=== PATIENT | male | born 1980 | race Caucasian/White ===

== ENCOUNTER 2018-10-12 04:32 | Observation (INO) | payer SELFPAY ==
[2018-10-12] MEDS ORDERED: LORazepam 2 MG/ML VIAL ONE (05:05)
[2018-10-12 05:07] LABS: Absolute Lymphocytes (CBC) 2.6 K/uL (0.7-4.9); Absolute Monocytes 2.1 K/uL (0.1-1.3); Absolute Neutrophil 12.4 K/uL (1.8-8.0); Basophils % 0.5 % (0-1.3); Eosinophils % 0.4 % (0-4.4); Hematocrit 47.1 % (39.6-49.0); Lymphocytes % 15.3 % (15.3-44.8); MPV 8.3 fL (7.6-11.3); Monocytes % 12.2 % (3.3-12.3); RBC Red Blood Cell Count 5.06 M/uL (4.33-5.43)
[2018-10-12 05:08] LABS: Protime INR 0.98
[2018-10-12] MEDS ORDERED: RSI MEDICATION KIT IV ONE (05:12)
[2018-10-12] MEDS ORDERED: NA CHLORIDE 0.9% 1,000 ML ONE ×2 (05:13→06:28)
[2018-10-12 05:25] LABS: ALT/SGPT 34 U/L (12-78); AST/SGOT 20 U/L (15-37); Albumin 4.4 g/dL (3.4-5.0); Alkaline Phosphatase 98 U/L (45-117); BUN Blood Urea Nitrogen 25 mg/dL (7-18); Bilirubin Direct 0.2 mg/dL (0-0.2); Bilirubin Total 0.7 mg/dL (0.2-1.0); Glucose Level 158 mg/dL (74-106); Protein, Total 8.9 g/dL (6.4-8.2); Sodium Level 140 mmol/L (136-145)
[2018-10-12 05:26] LABS: Bicarbonate 14 mmol/L (21-32)
[2018-10-12 05:26] LABS: Barbiturates NEGATIVE (NEGATIVE); Benzodiazepines NEGATIVE (NEGATIVE); Cocaine POSITIVE (NEGATIVE); METHAMPHETAM POSITIVE (NEGATIVE); Methadone NEGATIVE (NEGATIVE); Opiates NEGATIVE (NEGATIVE); Phencyclidine NEGATIVE (NEGATIVE); THC Cannibis NEGATIVE (NEGATIVE)
[2018-10-12 05:32] LABS: Arterial Blood Carboxyhemoglob 2.4 % (0-1.5); Blood Gas Oxyhemoglobin 95.5 % (94-97)
[2018-10-12 05:52] LABS: Creatine Phosphokinase 373 U/L (39-308)
[2018-10-12 06:00] LABS: Urine Blood TRACE (NEG); Urine Glucose NEGATIVE (NEG); Urine Protein 2+ (NEG); Urine Specific Gravity >1.030 (1.005-1.030)
--- NOTE | 2018-10-12 06:19 | P.HP ---
Certification for Inpatient Patient admitted to: Observation With expected LOS: <2 Midnights Practitioner: I am a practitioner with admitting privileges, knowledge of patient current condition, hospital course, and medical plan of care. Services: Services provided to patient in accordance with Admission requirements found in Title 42 Section 412.3 of the Code of Federal Regulations Patient History Date of Service: 10/12/18 Reason for admission: agitation, meth, coacaine intoxication History of Present Illness: Mr Orozco is a 38 years old male who was on the street yelling to the people. EMS gave his IV ketamine in the field and was brought to ED. At arrival , the patient was agitated, and he received 4 mg of Ativan IV. He also had to remain on restraint. No medical history available, the patient has no records in this hospital. Lab work shows 17.3K WBC, elevated creatinine 2.95 (unknown baseline) chemestry shows Co2 14, however ABG is remarkable for normal PH and HCO2 20. No fever at arrival. UDS positive for Meth and cocaine. CT head showed no acute abnormalities. At my encounter, the patient is alter but not following commands. Allergies No Known Allergies Allergy (Unverified 09/03/17 15:09) Home medications list reviewed: Yes - Past Medical/Surgical History Past Medical History: Unable to obtain Past Surgical History: Unable to obtain - Family History Family History: Reviewed- Non-Contributory - Social History Smoking Status: Unknown if ever smoked CD- Drugs: Yes Place of Residence: Home Review of Systems is unable to be obtained (due to AMS) Physical Examination - Physical Exam General: Alert, Other (agitated) HEENT: Atraumatic, PERRLA, Mucous membr. moist/pink, EOMI, Sclerae nonicteric Neck: Supple, 2+ carotid pulse no bruit, No LAD, Without JVD or thyroid abnormality Respiratory: Normal air movement, Rhonchi/gurgles (scattered rhonchi bilateral.) Cardiovascular: Regular rate/rhythm, Normal S1 S2 Gastrointestinal: Normal bowel sounds, No tenderness Musculoskeletal: No tenderness Integumentary: No rashes Neurological: Normal strength at 5/5 x4 extr, Normal tone, Sensation intact Lymphatics: No axilla or inguinal lymphadenopathy - Studies Laboratory Data (last 24 hrs) 10/12/18 04:35: PT 11.6, INR 0.98 10/12/18 04:35: WBC 17.3 H, Hgb 15.5, Hct 47.1, Plt Count 369 10/12/18 04:35: Sodium 140, Potassium 4.0, BUN 25 H, Creatinine 2.95 H, Glucose 158 H, Total Bilirubin 0.7, AST 20, ALT 34, Alkaline Phosphatase 98 Assessment and Plan - Problems (Diagnosis) (1) Methamphetamine intoxication Current Visit: Yes Status: Acute (2) Cocaine intoxication Current Visit: Yes Status: Acute Qualifiers: Complication of substance-induced condition: with delirium Qualified Code(s ): F14.921 - Cocaine use, unspecified with intoxication delirium (3) Altered mental status Current Visit: Yes Status: Acute Qualifiers: Altered mental status type: delirium Qualified Code(s): R41.0 - Disorientation, unspecified (4) Acute renal injury Current Visit: Yes Status: Acute - Plan The patient will be admitted to the hospital due to meth and cocaine intoxication with delirium and renal insufficiency, unknown wether is acute or chronic, will try IV fluid challenge. He remain agitated. Re-check BMP now, order lactate. - Advance Directives Does patient have a Living Will: No Does patient have a Durable POA for Healthcare: No - Code Status/Comfort Care Code Status Assessed: Yes Code Status: Full Code
--- NOTE | 2018-10-12 06:24 | ER ---
Nurse's Notes [facility] Name: Benjie Orozco Age: 38 yrs Sex: Male : 1980 Arrival Date: 10/12/2018 Time: 04:36 Bed 3 Private MD: Diagnosis: Adverse effect of cocaine;Adverse effect of amphetamines;Delirium due to known physiological condition Presentation: 10/12 04:29 Risk Assessment: Do you want to hurt yourself or someone else? Unable to obtain. ed1 Initial Sepsis Screen: Does the patient meet any 2 criteria? No. Patient's initial sepsis screen is negative. Does the patient have a suspected source of infection? No. Patient's initial sepsis screen is negative. 04:36 Care prior to arrival: pt hand cuffed and restrained by [place] police officers. ak1 04:42 Presenting complaint: EMS states: toned out for "person running in the street" [place] [employer] on ak1 scene to help contain pt who is awake, not alert, unable to follow commands. pt making noise but no coherent words formed. pt diaphoretic and combative upon arrival. EMS administered 500mg Ketamine IM. [place] [employer] at bedside upon arrival. Transition of care: patient was not received from another setting of care. Onset of symptoms was October 12, 2018. Risk Assessment:. 04:42 Method Of Arrival: EMS: [place] ak1 04:42 Acuity: JOCY 2 ak1 Historical: - Allergies: 04:41 No Known Allergies; ak1 - Home Meds: 04:41 Unable to obtain [Active]; ak1 - PMHx: 04:41 Unable to obtain; ak1 - PSHx: 04:41 Unable to obtain; ak1 - Immunization history:: Adult Immunizations unknown. - Social history:: Smoking status: unknown. - Ebola Screening: : Unable to complete screening because patient is disoriented, . Screenin:29 Abuse screen: Denies threats or abuse. Denies injuries from another. Nutritional ed1 screening: No deficits noted. Tuberculosis screening: No symptoms or risk factors identified. Fall Risk No fall in past 12 months (0 pts). No secondary diagnosis (0 pts). IV access (20 points). Ambulatory Aid- None/Bed Rest/Nurse Assist (0 pts). Gait- Impaired (20 pts.). Mental Status- Overestimates/Forgets Limitations (15 pts.). Total Martin Fall Scale indicates Low Risk Score (25-44 pts). Fall prevention measures have been instituted. Side Rails Up X 2 Placed close to Nursing Station. Assessment: 04:29 General: Appears distressed, Behavior is combative. Pain: Unable to use pain scale. ed1 Patient is disoriented. Neuro: Level of Consciousness is confused, Oriented to none. Cardiovascular: Heart tones S1 S2. Respiratory: Airway is patent Respiratory effort is even, Respiratory pattern is symmetrical, hyperventilation. GI: Abdomen is non-distended, Bowel sounds present X 4 quads. Abd is soft X 4 quads. EENT: Oral mucosa is moist. Derm: Skin is intact, is healthy with good turgor, Skin is moist, Skin is normal, Skin temperature is warm. Musculoskeletal: Circulation, motion, and sensation intact. Capillary refill < 3 seconds, in bilateral fingers. 05:33 Reassessment: No changes from previously documented assessment. Patient and/or family ed1 updated on plan of care and expected duration. Pain level reassessed. 06:00 Reassessment: Patient appears in no apparent distress at this time. Patient and/or ed1 family updated on plan of care and expected duration. Pain level reassessed. 06:45 Reassessment: Patient appears in no apparent distress at this time. No changes from ed1 previously documented assessment. 07:15 Reassessment: Patient appears in no apparent distress at this time. Pt appears to be ph asleep w/ equal and unlabored respirations, VSS, [address] restraints [address] in [address]. 08:10 Reassessment: Patient appears in no apparent distress at this time. Pt restless, ph attempting to kick off restraints, eyes are closed but pt is mumbling incoherently, report called to Bianca DOAN in ICU, preparing pt to be taken to ICU, restraints remain in place. Vital Signs: 04:38 BP 140 / 116; Pulse 130; Resp 24; Pulse Ox 98% on R/A; Weight 113.4 kg (R); Height 6 ak1 ft. 1 in. (185.42 cm) (R); 05:33 BP 110 / 73; Pulse 110; Resp 20; Pulse Ox 97% on 35% Venturi mask; ed1 06:00 BP 94 / 61; Pulse 101; Resp 19; Pulse Ox 98% on 35% Venturi mask; ed1 06:45 BP 128 / 74; Pulse 93; Resp 30; Pulse Ox 92% on R/A; ed1 04:38 Body Mass Index 32.98 (113.40 kg, 185.42 cm) ak1 ED Course: 04:29 Patient has correct armband on for positive identification. Placed in gown. Bed in low ed1 position. Side rails up X2. monitor and storage bin tender on. Pulse ox on. NIBP on. Cool cloth applied. 04:29 Inserted saline lock: 22 gauge in left hand, using aseptic technique. ,using aseptic ak1 technique. place by Cheyenne Alonso RN Blood collected. 04:29 Inserted saline lock: 20 gauge in right hand, using aseptic technique. ,using aseptic ak1 technique. placed by Cindy Linton RN. 04:36 Patient arrived in ED. ak1 04:38 Stone Betancourt MD is Attending Physician. gs 04:38 Arm band placed on Patient placed in an exam room, on a stretcher, on oxygen, on pulse ak1 oximetry. 04:47 Triage completed. ak1 04:53 Cheyenne Ruiz, OLIMPIA is Primary Nurse. ed1 05:00 Straight cath inserted, using sterile technique, 16 Fr. Specimen obtained. Returned ed1 alexia urine. Patient tolerated well. 05:11 Placed nasal trumpet 34 Fr via right nare. ed1 05:25 Notified ED physician of a critical lab result(s). bicarbonate of 15 Dr Betancourt notified. bb 05:[address] with nursing staff. ed1 05:40 CT Head Brain wo Cont In Process Unspecified. EDMS 06:22 Radha Barrow MD is Hospitalizing Provider. gs 06:30 No provider procedures requiring assistance completed. ed1 07:02 Primary Nurse role handed off by Cheyenne Ruiz, OLIMPIA ed1 07:56 Ling Godoy, OLIMPIA is Primary Nurse. ph 08:13 Patient admitted, IV remains in place. ph Restraints: 04:45 Violent/Self Destructive Restraint: Order: obtained. Initiated October 12, 2018 at ed1 04:45 Staff present during the Initiation of Restraint: Cheyenne Obrien, OLIMPIA, Cindy Rendon, OLIMPIA, Taina Lewis, OLIMPIA. Observed actions/behavior: confusion/disorientation, impaired decision making, repeated attempts to get up from bed/chair without assistance. decreased Level of Consciousness (LOC), unable to follow instructions, Less restrictive alternatives attempted: medicated for pain/anxiety, repositioned, Alternative interventions: Ineffective. Clinical justification for use: Violent/self destructing behavior impacts therapeutic environment. Poses a serious danger to physical safety of self \\T\\ others. Monitoring: Mental status: agitated/restless, confused. Cognition: unable to follow commands, Circulation: Within defined parameters (based on Cardiovascular assessment). Skin integrity: Within defined parameters (based on Integumentary assessment) No injuries due to Restraints noted. Restraint status: Soft wrist restraint (Right) Started. Soft wrist restraint (Left) Started. Soft ankle restraint (Right) Started. Soft ankle restraint (Left) Started. Readiness for Discontinue: Criteria not met. Patient still violent/self destructive and Alternative interventions still ineffective. Restraint continued. Face to Face Evaluatn: Immediate Situation: Pt unable to follow commands, aggressive behavior toward staff. Continue Restraint. MD Notified of Evaluation result: Stone Betancourt MD. 05:00 Violent/Self Destructive Restraint: Monitoring: Mental status: agitated/restless, ed1 confused. Cognition: unable to follow commands, Circulation: Within defined parameters (based on Cardiovascular assessment). Skin integrity: Within defined parameters (based on Integumentary assessment) No injuries due to Restraints noted. Restraint status: Soft wrist restraint (Right) Continued. Soft wrist restraint (Left) Continued. Soft ankle restraint (Right) Continued. Soft ankle restraint (Left) Continued. Readiness for Discontinue: Criteria not met. Patient still violent/self destructive and Alternative interventions still ineffective. Restraint continued. 05:15 Violent/Self Destructive Restraint: Monitoring: Mental status: agitated/restless, ed1 confused. Cognition: unable to follow commands, Circulation: Within defined parameters (based on Cardiovascular assessment). Skin integrity: Within defined parameters (based on Integumentary assessment) No injuries due to Restraints noted. Restraint status: Soft wrist restraint (Right) Continued. Soft wrist restraint (Left) Continued. Soft ankle restraint (Right) Continued. Soft ankle restraint (Left) Continued. Readiness for Discontinue: Criteria not met. Patient still violent/self destructive and Alternative interventions still ineffective. Restraint continued. 05:30 Violent/Self Destructive Restraint: Monitoring: Mental status: subdued, Cognition: ed1 unable to follow commands, Circulation: Within defined parameters (based on Cardiovascular assessment). Skin integrity: Within defined parameters (based on Integumentary assessment) No injuries due to Restraints noted. Restraint status: Soft wrist restraint (Right) Continued. Soft wrist restraint (Left) Continued. Soft ankle restraint (Right) Continued. Soft ankle restraint (Left) Continued. Readiness for Discontinue: Criteria not met. Patient still violent/self destructive and Alternative interventions still ineffective. Restraint continued. 05:45 Violent/Self Destructive Restraint: Monitoring: Mental status: patient asleep, ed1 Cognition: unable to follow commands, Circulation: Within defined parameters (based on Cardiovascular assessment). Skin integrity: Within defined parameters (based on Integumentary assessment) No injuries due to Restraints noted. Restraint status: Soft wrist restraint (Right) Continued. Soft wrist restraint (Left) Continued. Soft ankle restraint (Right) Continued. Soft ankle restraint (Left) Continued. Readiness for Discontinue: Criteria not met. Patient still violent/self destructive and Alternative interventions still ineffective. Restraint continued. 06:00 Violent/Self Destructive Restraint: Monitoring: Mental status: patient asleep, ed1 Cognition: unable to follow commands, Circulation: Within defined parameters (based on Cardiovascular assessment). Skin integrity: Within defined parameters (based on Integumentary assessment) No injuries due to Restraints noted. Restraint status: Soft wrist restraint (Right) Continued. Soft wrist restraint (Left) Continued. Soft ankle restraint (Right) Continued. Soft ankle restraint (Left) Continued. Readiness for Discontinue: Criteria not met. Patient still violent/self destructive and Alternative interventions still ineffective. Restraint continued. 06:15 Violent/Self Destructive Restraint: Monitoring: Mental status: agitated/restless, ed1 confused. Cognition: unable to follow commands, Circulation: Within defined parameters (based on Cardiovascular assessment). Skin integrity: Within defined parameters (based on Integumentary assessment) No injuries due to Restraints noted. Restraint status: Soft wrist restraint (Right) Continued. Soft wrist restraint (Left) Continued. Soft ankle restraint (Right) Continued. Soft ankle restraint (Left) Continued. Readiness for Discontinue: Criteria not met. Patient still violent/self destructive and Alternative interventions still ineffective. Restraint continued. 06:30 Violent/Self Destructive Restraint: Monitoring: Mental status: patient asleep, ed1 Cognition: unable to follow commands, Circulation: Within defined parameters (based on Cardiovascular assessment). Skin integrity: Within defined parameters (based on Integumentary assessment) No injuries due to Restraints noted. Restraint status: Soft wrist restraint (Right) Continued. Soft wrist restraint (Left) Continued. Soft ankle restraint (Right) Continued. Soft ankle restraint (Left) Continued. Readiness for Discontinue: Criteria not met. Patient still violent/self destructive and Alternative interventions still ineffective. Restraint continued. 06:45 Violent/Self Destructive Restraint: Monitoring: Mental status: patient asleep, ed1 Cognition: unable to follow commands, Circulation: Within defined parameters (based on Cardiovascular assessment). Skin integrity: Within defined parameters (based on Integumentary assessment) No injuries due to Restraints noted. Restraint status: Soft wrist restraint (Right) Continued. Soft wrist restraint (Left) Continued. Soft ankle restraint (Right) Continued. Soft ankle restraint (Left) Continued. Readiness for Discontinue: Criteria not met. Patient still violent/self destructive and Alternative interventions still ineffective. Restraint continued. 07:00 Violent/Self Destructive Restraint: Monitoring: Mental status: patient asleep, ph Cognition: unable to follow commands, Circulation: Within defined parameters (based on Cardiovascular assessment). Skin integrity: Within defined parameters (based on Integumentary assessment) No injuries due to Restraints noted. Restraint status: Soft wrist restraint (Right) Continued. Soft wrist restraint (Left) Continued. Soft ankle restraint (Right) Continued. Soft ankle restraint (Left) Continued. Readiness for Discontinue: Criteria not met. Patient still violent/self destructive and Alternative interventions still ineffective. Restraint continued. 07:15 Violent/Self Destructive Restraint: Observed actions/behavior: decreased Level of ph Consciousness (LOC), Monitoring: Mental status: patient asleep, Cognition: unable to follow commands, Circulation: Within defined parameters (based on Cardiovascular assessment). Skin integrity: Within defined parameters (based on Integumentary assessment) No injuries due to Restraints noted. Restraint status: Soft wrist restraint (Right) Continued. Soft wrist restraint (Left) Continued. Soft ankle restraint (Right) Continued. Soft ankle restraint (Left) Continued. Readiness for Discontinue: Criteria not met. Patient still violent/self destructive and Alternative interventions still ineffective. Restraint continued. 07:30 Violent/Self Destructive Restraint: Observed actions/behavior: ph confusion/disorientation, decreased Level of Consciousness (LOC), unable to follow instructions, Monitoring: Mental status: agitated/restless, Cognition: poor safety awareness, unable to follow commands, Circulation: Within defined parameters (based on Cardiovascular assessment). Skin integrity: Within defined parameters (based on Integumentary assessment) No injuries due to Restraints noted. Restraint status: Soft wrist restraint (Right) Continued. Soft wrist restraint (Left) Continued. Soft ankle restraint (Right) Continued. Soft ankle restraint (Left) Continued. Readiness for Discontinue: Criteria not met. Patient still violent/self destructive and Alternative interventions still ineffective. Restraint continued. 07:45 Violent/Self Destructive Restraint: Observed actions/behavior: ph confusion/disorientation, impaired decision making, decreased Level of Consciousness (LOC), unable to follow instructions, Monitoring: Mental status: agitated/restless, Cognition: poor safety awareness, unable to follow commands, Circulation: Within defined parameters (based on Cardiovascular assessment). Skin integrity: Within defined parameters (based on Integumentary assessment) No injuries due to Restraints noted. Restraint status: Soft wrist restraint (Right) Continued. Soft wrist restraint (Left) Continued. Soft ankle restraint (Right) Continued. Soft ankle restraint (Left) Continued. Readiness for Discontinue: Criteria not met. Patient still violent/self destructive and Alternative interventions still ineffective. Restraint continued. 08:00 Violent/Self Destructive Restraint: Observed actions/behavior: ph confusion/disorientation, impaired decision making, decreased Level of Consciousness (LOC), unable to follow instructions, Monitoring: Mental status: agitated/restless, Cognition: poor safety awareness, unable to follow commands, Circulation: Within defined parameters (based on Cardiovascular assessment). Skin integrity: Within defined parameters (based on Integumentary assessment) No injuries due to Restraints noted. Restraint status: Soft wrist restraint (Right) Continued. Soft wrist restraint (Left) Continued. Soft ankle restraint (Right) Continued. Soft ankle restraint (Left) Continued. Readiness for Discontinue: Criteria not met. Patient still violent/self destructive and Alternative interventions still ineffective. Restraint continued. Administered Medications: 04:30 Drug: Ativan 2 mg Route: IVP; Site: left hand; ak1 05:24 Follow up: Response: No adverse reaction ak1 04:31 Drug: Ativan 2 mg Route: IVP; Site: left hand; ak1 05:24 Follow up: Response: No adverse reaction ak1 05:08 Drug: NS 0.9% 1000 ml Route: IV; Rate: 1 bolus; Site: right hand; ak1 06:21 Follow up: IV Status: Completed infusion; IV Intake: 1000ml ed1 06:22 Drug: NS 0.9% 1000 ml Route: IV; Rate: 1 bolus; Site: right hand; ed1 07:30 Follow up: Response: No adverse reaction; IV Status: Completed infusion ph Intake: 06:21 IV: 1000ml; Total: 1000ml. ed1 Outcome: 06:23 Decision to Hospitalize by Provider. gs 08:13 Patient left the ED. hb 08:13 Admitted to ICU accompanied by nurse, accompanied by tech, via stretcher, room 1, on ph monitor, with chart, Report called to Bianca DOAN 08:13 Condition: stable Signatures: Dispatcher [employer] EDMS Taina Lewis RN RN Cheyenne Ruiz RN RN ed1 Alexia Perez RN RN ak1 Ling Godoy RN RN Lazara Stewart RN OLIMPIA Stone Betancourt MD MD Corrections: (The following items were deleted from the chart) 05:55 04:42 Presenting complaint: EMS states: toned out for "person running in the street" [place] PD on scene to help contain pt who is awake, not alert, unable to follow commands. pt making noise but no coherent words formed. pt diaphoretic and combative upon arrival. EMS administered 500mg Ketamine IM. [place] [employer] at bedside upon arrival. ak1 06:07 05:33 Reassessment: Patient appears in no apparent distress at this time. No changes ed1 from previously documented assessment. Patient and/or family updated on plan of care and expected duration. Pain level reassessed. ed1
--- NOTE | 2018-10-12 06:24 | EDPHYS ---
Physician Documentation [facility] Name: Benjie Orozco Age: 38 yrs Sex: Male : 1980 Arrival Date: 10/12/2018 Time: 04:36 Bed 3 Private MD: ED Physician Stone Betancourt HPI: 10/12 05:56 This 38 yrs old Male presents to ER via EMS with complaints of ams. gs 05:56 Onset: The symptoms/episode began/occurred acutely, just prior to arrival. Possible gs causes: drug use, alcohol, head injury. Unable to obtain HPI due to patient distress. The patient has experienced similar episodes in the past, a few times. Historical: - Allergies: 04:41 No Known Allergies; ak1 - Home Meds: 04:41 Unable to obtain [Active]; ak1 - PMHx: 04:41 Unable to obtain; ak1 - PSHx: 04:41 Unable to obtain; ak1 - Immunization history:: Adult Immunizations unknown. - Social history:: Smoking status: unknown. - Ebola Screening: : Unable to complete screening because patient is disoriented, . ROS: 05:56 Unable to obtain ROS due to patient distress. gs Exam: 05:56 Head/Face: Normocephalic, atraumatic. Eyes: Pupils equal round and reactive to light, gs extra-ocular motions intact. Lids and lashes normal. Conjunctiva and sclera are non-icteric and not injected. Cornea within normal limits. Periorbital areas with no swelling, redness, or edema. ENT: Nares patent. No nasal discharge, no septal abnormalities noted. Tympanic membranes are normal and external auditory canals are clear. Oropharynx with no redness, swelling, or masses, exudates, or evidence of obstruction, uvula midline. Mucous membranes moist. Neck: Trachea midline, no thyromegaly or masses palpated, and no cervical lymphadenopathy. Supple, full range of motion without nuchal rigidity, or vertebral point tenderness. No Meningismus. Chest/axilla: Normal chest wall appearance and motion. Nontender with no deformity. No lesions are appreciated. 05:56 Abdomen/GI: Soft, non-tender, with normal bowel sounds. No distension or tympany. No guarding or rebound. No evidence of tenderness throughout. Back: No spinal tenderness. No costovertebral tenderness. Full range of motion. Skin: Warm, dry with normal turgor. Normal color with no rashes, no lesions, and no evidence of cellulitis. MS/ Extremity: Pulses equal, no cyanosis. Neurovascular intact. Full, normal range of motion. 05:56 Constitutional: The patient appears lethargic. 05:56 Cardiovascular: Rate: tachycardic, Rhythm: regular, Pulses: no pulse deficits are appreciated. 05:56 Respiratory: the patient does not display signs of respiratory distress, Respirations: normal, symetrical, no use of accessory muscles, no tachypnea, airway patent, swallowing and handling own secretions. 05:56 Neuro: Vital Signs: 04:38 BP 140 / 116; Pulse 130; Resp 24; Pulse Ox 98% on R/A; Weight 113.4 kg (R); Height 6 ak1 ft. 1 in. (185.42 cm) (R); 05:33 BP 110 / 73; Pulse 110; Resp 20; Pulse Ox 97% on 35% Venturi mask; ed1 06:00 BP 94 / 61; Pulse 101; Resp 19; Pulse Ox 98% on 35% Venturi mask; ed1 06:45 BP 128 / 74; Pulse 93; Resp 30; Pulse Ox 92% on R/A; ed1 04:38 Body Mass Index 32.98 (113.40 kg, 185.42 cm) ak MDM: 04:38 Patient medically screened. 06:20 Differential Diagnosis: CVA, intracranial bleed, overdose. Data reviewed: vital signs, nurses notes. Response to treatment: the patient's symptoms have mildly improved after treatment, and as a result, I will admit patient. 10/12 04:39 Order name: Acetaminophen 10/12 04:39 Order name: Basic Metabolic Panel 10/12 04:39 Order name: CBC with Diff 10/12 04:39 Order name: ETOH Level; Complete Time: 06:06 10/12 04:39 Order name: Hepatic Function; Complete Time: 06:06 10/12 04:39 Order name: PT-INR; Complete Time: 06:06 10/12 04:39 Order name: Salicylate; Complete Time: 06:06 10/12 04:39 Order name: Urine Drug Screen; Complete Time: 06:06 10/12 04:39 Order name: Acetaminophen Level; Complete Time: 06:06 EDMS 10/12 04:39 Order name: Basic Metabolic Panel; Complete Time: 06:06 EDMS 10/12 04:39 Order name: CBC with Automated Diff; Complete Time: 06:06 EDMS 10/12 05:04 Order name: Urine Dipstick--Ancillary (enter results); Complete Time: 06:06 ar5 10/12 05:32 Order name: ABG Arterial Blood Gas; Complete Time: 06:06 EDMS 10/12 04:38 Order name: CT Head Brain wo Cont gs 10/12 04:39 Order name: EKG; Complete Time: 04:40 gs 10/12 04:39 Order name: EKG - Nurse/Tech; Complete Time: 04:48 gs 10/12 04:39 Order name: IV Saline Lock; Complete Time: 04:48 gs 10/12 04:39 Order name: Labs collected and sent; Complete Time: 04:48 gs 10/12 04:39 Order name: Urine Dipstick-Ancillary (obtain specimen); Complete Time: 05:31 gs 10/12 05:40 Order name: Creatine Phosphokinase; Complete Time: 06:06 EDMS 10/12 06:07 Order name: Osmolality, Serum gs 10/12 06:07 Order name: BMP gs 10/12 06:07 Order name: Lactate gs 10/12 06:20 Order name: Restrain Patient; Complete Time: 06:20 ed1 Administered Medications: 04:30 Drug: Ativan 2 mg Route: IVP; Site: left hand; ak1 05:24 Follow up: Response: No adverse reaction ak1 04:31 Drug: Ativan 2 mg Route: IVP; Site: left hand; ak1 05:24 Follow up: Response: No adverse reaction ak1 05:08 Drug: NS 0.9% 1000 ml Route: IV; Rate: 1 bolus; Site: right hand; ak1 06:21 Follow up: IV Status: Completed infusion; IV Intake: 1000ml ed1 06:22 Drug: NS 0.9% 1000 ml Route: IV; Rate: 1 bolus; Site: right hand; ed1 07:30 Follow up: Response: No adverse reaction; IV Status: Completed infusion ph Disposition: 06:20 Critical Care:. Disposition: 10/12/18 06:23 Hospitalization ordered by Radha Barrow for Inpatient Admission. Preliminary diagnosis are Adverse effect of cocaine, Adverse effect of amphetamines, Delirium due to known physiological condition. - Bed requested for Intensive Care Unit. - Status is Inpatient Admission. hb - Condition is Stable. - Problem is new. - Symptoms have improved. UTI on Admission? No Critical care time excluding procedures: 06:20 Critical care time: Bedside Care: 10 minutes, Consultation: 10 minutes, Family Intervention: 10 minutes. Total time: 30 minutes Signatures: Dispatcher [employer] [facility] Tanisha Singleton RN RN Cheyenne Ruiz RN RN ed1 Alexia Perez, RN RN ak1 Lazara Stewart, RN RN Stone Betancourt MD MD Ling Godoy RN ph Corrections: (The following items were deleted from the chart) 05:41 05:39 CREATINE PHOSPHOKINASE+C.LAB.BRZ ordered. [facility] 06:24 06:23 Hospitalization Ordered by Radha Barrow MD for Inpatient Admission. Preliminary diagnosis is Adverse effect of cocaine; Adverse effect of amphetamines; Delirium due to known physiological condition. Bed requested for Intensive Care Unit. Status is Inpatient Admission. Condition is Stable. Problem is new. Symptoms have improved. UTI on Admission? No. gs 08:13 06:24 10/12/2018 06:23 Hospitalization Ordered by Radha Barrow MD for Inpatient hb Admission. Preliminary diagnosis is Adverse effect of cocaine; Adverse effect of amphetamines; Delirium due to known physiological condition. Bed requested for Intensive Care Unit. Status is Inpatient Admission. Condition is Stable. Problem is new. Symptoms have improved. UTI on Admission? No. mw
[2018-10-12 06:54] LABS: Potassium 3.5 mmol/L (3.5-5.1)
--- NOTE | 2018-10-12 07:39 | EKG ---
Test Date: 2018-09-11 Test Time: 04:46:39 Net Web Developer: AG3 MEASUREMENT RESULTS: Intervals: Rate: 124 IN: 124 QRSD: 86 QT: 310 QTc: 445 [place]: P: IN: 124 QRS: 121 T: 196 INTERPRETIVE STATEMENTS: ARM LEAD REVERSAL REPEAT THIS ECG Sinus tachycardia Abnormal ECG Compared to ECG 10/04/2008 08:08:57 interpretation and comparison are unreliable, repeat ECG Electronically Signed On 10-12-18 07:29:42 PROMPT CARE RN by Markus Costa
[2018-10-12] MEDS ORDERED: ONDANSETRON 4 MG/2 ML VIAL IV PRN (08:09)
[2018-10-12] MEDS: NA CHLORIDE 0.9% 1,000 ML IV SCH ×2 (08:36→15:50)
[2018-10-12] MEDS ORDERED: LORazepam 2 MG/ML VIAL IV PRN (13:24)
--- NOTE | 2018-10-12 14:46 | P.PN ---
Subjective Date of Service: 10/12/18 Primary Care Provider: Unknown Chief Complaint: agitation, meth, cocaine intoxication Subjective: Other (Patient was sleeping upon evaluation.) Physical Examination - Vital Signs Temperature: 97.2 F Blood Pressure: 153/92 Pulse: 87 Respirations: 24 Pulse Ox (%): 100 - Physical Exam General: Other (Patient resting in bed.) HEENT: Atraumatic Neck: Supple Respiratory: Clear to auscultation bilaterally, Normal air movement Cardiovascular: Normal pulses, Regular rate/rhythm Gastrointestinal: Normal bowel sounds - Studies Laboratory Data (last 24 hrs) 10/12/18 06:28: Sodium 142, Potassium 3.5, BUN 26 H, Creatinine 2.53 H, Glucose 141 H 10/12/18 04:35: PT 11.6, INR 0.98 10/12/18 04:35: WBC 17.3 H, Hgb 15.5, Hct 47.1, Plt Count 369 10/12/18 04:35: Sodium 140, Potassium 4.0, BUN 25 H, Creatinine 2.95 H, Glucose 158 H, Total Bilirubin 0.7, AST 20, ALT 34, Alkaline Phosphatase 98 Medications List Reviewed: Yes Assessment & Plan Discharge Plan: Home Plan to discharge in: 24 Hours Physician Review Additional Text: Impression: Altered mental status likely secondary to cocaine and methamphetamine intoxication Acute renal injury likely from dehydration Suspect underlying chronic mental illness Plan: Altered mental status likely secondary to cocaine and methamphetamine intoxication: Will wean off sedation medication. Will need to evaluate home situation. Will continue monitor closely. Continue with IV fluids. Acute renal injury likely from dehydration: Continue with IV fluids. Will check renal ultrasound to evaluate for further etiology. Suspect underlying chronic mental illness: Will need to assess once the patient is back to baseline. Patient may need psychiatric evaluation. Time Spent Managing Pts Care (In Minutes): 55
--- NOTE | 2018-10-12 15:01 | RAD REPORT ---
EXAM DESCRIPTION: US - Renal Ultrasound-Complete - 10/12/2018 2:39 pm CLINICAL HISTORY: . Acute renal failure COMPARISON: None. FINDINGS: The right kidney measures 11 cm with a normal echotexture. The left kidney measures 12 cm with a normal echotexture. Hydronephrosis is not seen. No gross abnormality of bladder is noted IMPRESSION: Unremarkable renal ultrasound.
--- NOTE | 2018-10-12 17:25 | P.DS ---
Admission Date: 10/12/18 Discharge Date: 10/12/18 Primary Care Provider: Dr. Estes Disposition: AMA-LEFT AGAINST MEDICAL ADVIC Discharge Condition: GOOD Reason for Admission: agitation, meth, cocaine intoxication Consultations: none Procedures: CT head: unremarkable. Renal US: FINDINGS: The right kidney measures 11 cm with a normal echotexture. The left kidney measures 12 cm with a normal echotexture. Hydronephrosis is not seen. No gross abnormality of bladder is noted IMPRESSION: Unremarkable renal ultrasound Medical Problem List: Altered mental status likely secondary to cocaine and methamphetamine intoxication Acute renal injury likely from dehydration with mild rhabdomyolysis Brief History of Present Illness: 38 yo CM presented to the ER with altered mental status. He was brought in by EMS and police after he was agitated and yelling at people. The patient required sedation in the ER and by EMS. He was found to be positive for cocaine and amphetamines. He also had acute renal injury. He was admitted to further address. Hospital Course: Patient presented with altered mental status secondary to cocaine and metamphetamine intoxication. He was also found to have acute renal injury secondary to dehydration and mild rhabdomyolysis. He was given IV fluids. His sedation resolved. He is back to baseline. He is not suicidal. Renal function slightly improved but still not in the normal range. I spoke to the patient in detail concerning the need to remain in the hospital for more hydration and to monitor his renal function. The patient refused to stay and continue treatment. He desires to leave against medical advice. Patient will leave against medical advice. Recommend for the patient to increase his fluid intake. Recommend to follow up with his PCP in one week for repeat lab-BMP to monitor resolution of acute renal injury. Recommend cessation from cocaine and methamphetamines. He may benefit with drug abuse counseling. He should be evaluated by his PCP for depression. This can be further addressed by his PCP. Vital Signs/Physical Exam: Temp Pulse Resp BP Pulse Ox 98.8 F 98 H 21 H 148/87 H 99 10/12/18 16:00 10/12/18 16:00 10/12/18 16:00 10/12/18 16:00 10/12/18 16:00 General: Alert, In no apparent distress, Oriented x3, Cooperative HEENT: Atraumatic Neck: Supple Respiratory: Clear to auscultation bilaterally, Normal air movement Cardiovascular: Normal pulses, Regular rate/rhythm Gastrointestinal: Normal bowel sounds, Soft and benign, Non-distended, No tenderness, No masses, No rebound, No guarding Musculoskeletal: No erythema, No tenderness, No warmth Integumentary: No tenderness/swelling, No erythema, No warmth, No cyanosis Neurological: Normal speech, Normal strength at 5/5 x4 extr, Normal tone Laboratory Data at Discharge: WBC 17.3 K/uL (4.3-10.9) H 10/12/18 04:35 Hgb 15.5 g/dL (13.6-17.9) 10/12/18 04:35 Hct 47.1 % (39.6-49.0) 10/12/18 04:35 Plt Count 369 K/uL (152-406) 10/12/18 04:35 PT 11.6 SECONDS (9.5-12.5) 10/12/18 04:35 INR 0.98 10/12/18 04:35 Sodium 142 mmol/L (136-145) 10/12/18 06:28 Potassium 3.5 mmol/L (3.5-5.1) 10/12/18 06:28 BUN 26 mg/dL (7-18) H 10/12/18 06:28 Creatinine 2.53 mg/dL (0.55-1.3) H 10/12/18 06:28 Glucose 141 mg/dL (74-106) H 10/12/18 06:28 Total Bilirubin 0.7 mg/dL (0.2-1.0) 10/12/18 04:35 AST 20 U/L (15-37) 10/12/18 04:35 ALT 34 U/L (12-78) 10/12/18 04:35 Alkaline Phosphatase 98 U/L (45-117) 10/12/18 04:35 Home Medications: NK [No Home Meds] 10/12/18 Patient Discharge Instructions: Patient left AMA. Diet: AHA Activity: Ad rosamaria Time spent managing pt's care (in minutes): 55
--- NOTE | 2018-10-12 21:19 | RAD REPORT ---
EXAM DESCRIPTION: CT - Head Brain Wo Cont CLINICAL HISTORY: The patient is 38 years old and is Male; CONFUSED. TECHNIQUE: Axial computed tomography images of the head/brain without intravenous contrast. Sagittal and coronal reformatted images were created and reviewed. This CT exam was performed using one or more of the [facility] dose reduction techniques: Automated exposure control, adjustment of the mA and/or kV accordi ng to patient size, and/or use of iterative reconstruction technique. COMPARISON: No relevant prior studies available. FINDINGS: Brain: Unremarkable. No hemorrhage. No significant white matter disease. No edema. Ventricles: Unremarkable. No ventriculomegaly. Bones/joints: Unremarkable. No acute fracture. Soft tissues: Unremarkable. Sinuses: Unremarkable as visualized. No acute sinusitis. Mastoid air cells: Unremarkable as visualized. No mastoid effusion. IMPRESSION: Normal head/brain CT. Electronically signed by: Nevaeh lAex MD 10/12/2018 6:08 AM SUPERVISOR [employer] Due to temporary technical issues with the PACS/Fluency reporting system, reports are being signed by the in house radiologist as a courtesy to ensure prompt reporting. The interpreting radiologist is f ully responsible for the content of the report.
== END 2018-10-12 17:45 | disposition left against medical advice (07) ==
LOC: ER 04:32 → ERHOLD 06:29 → INTOOBSV 06:29 → 3RD-ICU 08:04
PROVIDERS: ADMIT Internal Medicine; ATTEND Internal Medicine
DX: F15.129 Other stimulant abuse with intoxication, unspecified (principal); F14.90 Cocaine use, unspecified, uncomplicated; N17.9 Acute kidney failure, unspecified; E86.0 Dehydration; M62.82 Rhabdomyolysis
CPT/HCPCS: 36415; 51702; 70450; 76770; 80048; 80076; 80307; 80320; 80329; 81003; 82550; 82805; 83605; 83930; 85025; 85610; 93005; 94760; 96361; 96374; 99285; G0378; J7030

== ENCOUNTER 2018-10-15 13:01 | Emergency (ER) | payer SELFPAY ==
--- NOTE | 2018-10-15 13:54 | RAD REPORT ---
EXAM DESCRIPTION: RAD -Hand Left 3 View - 10/15/2018 1:46 pm CLINICAL HISTORY: Left hand pain FINDINGS: No fracture or dislocation is seen. No bone or joint abnormality
--- NOTE | 2018-10-15 13:54 | RAD REPORT ---
EXAM DESCRIPTION: RAD - Hand Right 3 View - 10/15/2018 1:46 pm CLINICAL HISTORY: Right hand pain FINDINGS: No fracture or dislocation is seen. No bone or joint abnormality
--- NOTE | 2018-10-15 13:57 | RAD REPORT ---
EXAM DESCRIPTION: RAD - Wrist Right 3 View - 10/15/2018 1:52 pm CLINICAL HISTORY: Right wrist pain FINDINGS: No fracture or dislocation is seen. If the patient continues to have symptoms to suggest a n occult fracture then a followup plain film series in 7 days would be recommended. No bone or joint abnormality
--- NOTE | 2018-10-15 13:58 | RAD REPORT ---
EXAM DESCRIPTION: RAD - Wrist Left 3 View - 10/15/2018 1:53 pm CLINICAL HISTORY: Left wrist pain FINDINGS: No fracture or dislocation is seen. No bone or joint abnormalities
--- NOTE | 2018-10-15 15:01 | ER ---
Nurse's Notes [facility] Name: Benjie Orozco Age: 38 yrs Sex: Male : 1980 Arrival Date: 10/15/2018 Time: 13:03 Bed 9 Private MD: Keon Pace H Diagnosis: Carpal tunnel syndrome;Pain in left wrist;Pain in right wrist Presentation: 10/15 13:15 Presenting complaint: Patient states: left and right hand numbness since he had sv handcuffs placed on his last week. Transition of care: patient was not received from another setting of care. Onset of symptoms was October 12, 2018. Care prior to arrival: None. 13:15 Method Of Arrival: Ambulatory sv 13:15 Acuity: JOCY 4 sv 14:30 Risk Assessment: Do you want to hurt yourself or someone else? Patient reports no aa5 desire to harm self or others. Initial Sepsis Screen: Does the patient meet any 2 criteria? No. Patient's initial sepsis screen is negative. Does the patient have a suspected source of infection? No. Patient's initial sepsis screen is negative. Triage Assessment: 13:18 General: Appears in no apparent distress. uncomfortable, Behavior is calm, cooperative, sv appropriate for age. Pain: Denies pain. Neuro: Level of Consciousness is awake, alert, obeys commands, Oriented to person, place, time, situation, Gait is steady, Reports numbness in right hand and left hand. Musculoskeletal: Range of motion: intact in all extremities. Historical: - Allergies: 13:16 No Known Allergies; sv - PMHx: 13:16 None; sv - PSHx: 13:16 None; sv - Immunization history:: Flu vaccine is up to date. - Social history:: Smoking status: Patient uses tobacco products, smokes one-half pack cigarettes per day. - Ebola Screening: : No symptoms or risks identified at this time. Screenin:30 Abuse screen: Denies threats or abuse. Nutritional screening: No deficits noted. aa5 Tuberculosis screening: No symptoms or risk factors identified. Fall Risk None identified. Assessment: 14:30 General: Appears comfortable, Behavior is calm, cooperative, Reports numbness to tha aa5 wrists. Pain: Denies pain. Neuro: Level of Consciousness is awake, alert, obeys commands, Oriented to person, place, time, situation. Cardiovascular: No deficits noted. Capillary refill < 3 seconds is brisk in bilateral fingers Patient's skin is warm and dry. Respiratory: Airway is patent Respiratory effort is even, unlabored, Respiratory pattern is regular, symmetrical. GI: No signs and/or symptoms were reported involving the gastrointestinal system. : No signs and/or symptoms were reported regarding the genitourinary system. EENT: No signs and/or symptoms were reported regarding the EENT system. Derm: Skin is pink, warm \\T\\ dry. Musculoskeletal: Range of motion: intact in all extremities. 15:24 Reassessment: Pt refused wrist splint, pt states "I'll just buy one at the pharmacy" . aa5 Vital Signs: 13:16 BP 146 / 92; Pulse 83; Resp 18; Temp 98.4; Pulse Ox 97% ; Weight 120.2 kg; Height 6 ft. sv 3 in. (190.50 cm); Pain 0/10; 13:16 Body Mass Index 33.12 (120.20 kg, 190.50 cm) sv ED Course: 13:03 Patient arrived in ED. sb2 13:04 Keon Pace DO is Private Physician. sb2 13:16 Triage completed. sv 13:17 Arm band placed on Patient placed in waiting room, Patient notified of wait time. sv 13:37 X-ray completed. Patient tolerated procedure well. Patient moved to radiology mh1 AMBULATORY. Patient moved back from radiology. 13:43 Wrist Left (3 View) XRAY In Process Unspecified. EDMS 13:43 Wrist Right 3 View XRAY In Process Unspecified. EDMS 13:44 Hand Left 3 View XRAY In Process Unspecified. EDMS 13:44 Hand Right 3 View XRAY In Process Unspecified. EDMS 14:29 Bambi Foster, OLIM[place] is Primary Nurse. aa5 14:30 Patient has correct armband on for positive identification. Bed in low position. Call aa5 light in reach. 14:46 Tab Dodson NP is PHCP. pm1 14:46 Alvarado Yoon MD is Attending Physician. pm1 15:00 Alexx Waters MD is Referral Physician. pm1 15:38 No provider procedures requiring assistance completed. Patient did not have IV access aa5 during this emergency room visit. Administered Medications: 15:24 Drug: TORadol 60 mg Route: IM; Site: left gluteus; aa5 15:39 Follow up: Response: No adverse reaction aa5 15:24 Drug: Decadron 10 mg Route: IM; Site: right gluteus; aa5 15:39 Follow up: Response: No adverse reaction aa5 Outcome: 15:00 Discharge ordered by MD. pm1 15:38 Discharged to home ambulatory. aa5 15:38 Condition: stable 15:38 Discharge instructions given to patient, Instructed on discharge instructions, follow up and referral plans. Demonstrated understanding of instructions, follow-up care. 15:39 Patient left the ED. dm5 Signatures: Dispatcher [employer] EDMS Jacqueline Pollard RN RN dm5 Kaitlin Mcneill RN RN Tanisha Cheng 1 Bambi Foster RN RN aa5 Tab Dodson NP SHOVEL LOGGER pm1 Anu Bravo sb2 Corrections: (The following items were deleted from the chart) 13:17 13:15 Presenting complaint: Patient states: left hand numbness since he had handcuffs sv placed on his last week. sv 13:18 13:16 Pulse 83bpm; Resp 18bpm; Pulse Ox 97%; Temp 98.4F; 120.2 kg; Height 6 ft. 3 in.; sv BMI: 33.1; Pain 0/10; sv
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
[2018-10-15] MEDS ORDERED: DEXAMETHASONE 4 MG/ML VIAL ONE (15:17)
[2018-10-15] MEDS ORDERED: KETOROLAC 30 MG/ML INJ ONE (15:17)
== END 2018-10-15 15:39 | disposition home or self-care (01) ==
LOC: ER 13:01
DX: G56.03 Carpal tunnel syndrome, bilateral upper limbs (principal); F17.210 Nicotine dependence, cigarettes, uncomplicated
CPT/HCPCS: 96372; 99283

== ENCOUNTER 2022-09-16 00:15 | Emergency (ER) | payer SELFPAY ==
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
[2022-09-16 02:18] VITALS: BP 151/130; TEMP 97.6; O2SAT 99
== END 2022-09-16 02:12 | disposition home or self-care (01) ==
LOC: ER 00:15
DX: F22 Delusional disorders (principal); I10 Essential (primary) hypertension; F17.210 Nicotine dependence, cigarettes, uncomplicated
CPT/HCPCS: 99281